=== PATIENT | female | born 1985 | race Caucasian/White ===

== ENCOUNTER 2017-10-22 12:56 | Emergency (ER) | payer SELFPAY ==
[2017-10-22] MEDS ORDERED: NS 0.9% 1000 ML* 1,000 ML IV ONE (16:28)
[2017-10-22 17:03] LABS: Urine Appearance Clear; Urine Blood Negative (Negative); Urine Color Straw; Urine Ketones Negative (Negative); Urine Protein Negative (Negative); Urine Specific Gravity 1.005 (1.010-1.030); Urine Urobilinogen Negative (Negative)
[2017-10-22 17:05] LABS: ABS Basophils 0 10^3/ul (0-0.2); ABS Eosinophils 0.1 10^3/ul (0-0.6); ABS Lymphocytes 1.8 10^3/ul (1.0-4.8); ABS Monocytes 0.6 10^3/ul (0-0.8); ABS Neutrophils 4.7 10^3/ul (1.5-7.7); ABS Nucleated RBC 0 10^3/ul; Eosinophil % 1.5 % (0-6); Hematocrit 33 % (35-47); Hemoglobin 11.2 g/dl (12.0-16.0); Mean Corpuscular HGB Conc 33 g/dl (31-36); Mean Corpuscular Hemoglobin 28 pg (27-31); Mean Corpuscular Volume 84 fL (80-97); Mean Platelet Volume 9 um3 (7.4-10.4); Nucleated Red Blood Cells % 0; Platelet Count 235 10^3/ul (150-450); Red Blood Count 3.96 10^6/ul (4.0-5.4); Red Cell Distribution Width 17 % (10.5-15); White Blood Count 7.2 10^3/ul (3.5-10.8)
[2017-10-22 17:19] LABS: EGFR Non-African American 183.8 (>60)
[2017-10-22 17:30] VITALS: BP 123/68
--- NOTE | 2017-10-22 18:16 | RAD ---
Indication: Pelvic pain. 12 weeks 2 days gestation based on July 28, 2017 LMP. Comparison: No relevant prior exams available on the [facility] for comparison. Technique: Transabdominal obstetrical ultrasound. Report: Marie intrauterine gestation with observed movement and cardiac activity with heart rate measuring 163 bpm period 5.4 cm pole crown-rump length corresponding to 12 weeks 1 day gestation. Normal contour of the gestational sac. Too early to assess for placenta previa. No perigestational hemorrhage evident. Heterogeneous uterus without definitive visualized fibroids. 3.5 cm cervix. 3.1 x 1.4 x 2.5 cm RIGHT ovary with documented vascular flow is unremarkable. 3.0 x 1.6 x 3.6 cm LEFT ovary with documented vascular flow is remarkable for a 2.2 x 1.2 x 1.8 cm complex cyst devoid of intrinsic vascularity most suspicious for a corpus luteum. No extraovarian adnexal region lesions evident. IMPRESSION: Viable-appearing single 10 intrauterine gestation with estimated gestational age based on this exam of 12 weeks 1 day and AUA SELENA of May 05, 2018.
[2017-10-22] MEDS ORDERED: Nitrofurantoin Macrocrystals* 100 MG CAP PO ONE (18:31)
[2017-10-22] MEDS ORDERED: Cephalexin SUSP* 250 MG/5 ML ORAL.SUSP 100 ML BTL PO ONE (19:01)
--- NOTE | 2017-10-22 19:41 | ED ---
Dennys Richard Tecjoon, scribed for Alex Thurman MD on 10/22/17 at 1636 . Abdominal Pain/Female - HPI Summary HPI Summary: This patient is a 31 year old female presenting to [facility] with a chief complaint of RLQ abd pain since about a month ago. The pain is rated 0/10 in severity currently, but patient states the pain comes and goes. Symptoms aggravated by nothing. Symptoms alleviated by nothing. Patient is currently 11 weeks. Patient denies fever chills, nausea, diarrhea, trouble urinating. Patient has /A2. - History of Current Complaint Chief Complaint: EDOBProblems Stated Complaint: 11 WEEKS PREG ABD PAIN Time Seen by Provider: 10/22/17 16:22 ?: Yes - 11 weeks Onset/Duration: Gradual Onset, Lasting Weeks - 4 Timing: Intermittent Episode Lasting Severity Currently: None Pain Intensity: 0 Pain Scale Used: 0-10 Numeric Location: Discrete At: RLQ Aggravating Factor(s): Nothing Alleviating Factor(s): Nothing Associated Signs and Symptoms: Positive: Negative - fever chills, nausea, diarrhea, trouble urinating Allergies/Adverse Reactions: Allergies Allergy/AdvReac Type Severity Reaction Status Date / Time Diphenhydramine Allergy See Comment Verified 07/20/15 10:20 [From Benadryl] PMH/Surg Hx/FS Hx/Imm Hx Previously Healthy: Yes Opthamlomology History: Denies: Hx Legally Blind EENT History: Denies: Hx Deafness - Immunization History Immunizations Up to Date: Yes Infectious Disease History: No Infectious Disease History: Denies: Traveled Outside the [place] in Last 30 Days - Family History Known Family History: Positive: Diabetes, Other - cancer - Social History Occupation: Employed Full-time Alcohol Use: None Hx Substance Use: No Substance Use Type: Reports: None Hx Tobacco Use: Yes Smoking Status (MU): Light Every Day Tobacco Smoker Review of Systems Negative: Fever, Chills Positive: Abdominal Pain. Negative: Diarrhea, Nausea Genitourinary: Negative - urinary problems All Other Systems Reviewed And Are Negative: Yes Physical Exam Triage Information Reviewed: Yes Vital Signs On Initial Exam: Initial Vitals Temp Pulse Resp BP Pulse Ox 99.0 F 98 16 121/88 100 10/22/17 12:57 10/22/17 12:57 10/22/17 12:57 10/22/17 12:57 10/22/17 12:57 Vital Signs Reviewed: Yes Appearance: Positive: Well-Appearing, No Pain Distress Skin: Positive: Warm, Skin Color Reflects Adequate Perfusion Head/Face: Positive: Normal Head/Face Inspection Eyes: Positive: EOMI ENT: Positive: Normal ENT inspection, Pharynx normal Respiratory/Lung Sounds: Positive: Clear to Auscultation, Breath Sounds Present Cardiovascular: Positive: RRR. Negative: Murmur Abdomen Description: Positive: Nontender Musculoskeletal: Positive: Strength/ROM Intact Neurological: Positive: Sensory/Motor Intact, Alert, Oriented to Person Place, Time, CN Intact II-III - Jefferson Coma Scale Best Eye Response: 4 - Spontaneous Best Motor Response: 6 - Obeys Commands Best Verbal Response: 5 - Oriented Coma Scale Total: 14 Diagnostics - Vital Signs Vital Signs Temp Pulse Resp BP Pulse Ox 10/22/17 12:57 99.0 F 98 16 121/88 100 - Laboratory Lab Results: Lab Results 10/22/17 10/22/17 10/22/17 Range/Units 16:30 16:50 16:50 WBC 7.2 (3.5-10.8) 10^3/ul RBC 3.96 L (4.0-5.4) 10^6/ul Hgb 11.2 L (12.0-16.0) g/dl Hct 33 L (35-47) % MCV 84 (80-97) fL MCH 28 (27-31) pg MCHC 33 (31-36) g/dl RDW 17 H (10.5-15) % Plt Count 235 (150-450) 10^3/ul MPV 9 (7.4-10.4) um3 Neut % (Auto) 64.3 (38-83) % Lymph % (Auto) 25.0 (25-47) % [place] % (Auto) 8.8 (1-9) % Eos % (Auto) 1.5 (0-6) % Baso % (Auto) 0.4 (0-2) % Absolute Neuts (auto) 4.7 (1.5-7.7) 10^3/ul Absolute Lymphs (auto) 1.8 (1.0-4.8) 10^3/ul Absolute Monos (auto) 0.6 (0-0.8) 10^3/ul Absolute Eos (auto) 0.1 (0-0.6) 10^3/ul Absolute Basos (auto) 0 (0-0.2) 10^3/ul Absolute Nucleated RBC 0 10^3/ul Nucleated RBC % 0 Sodium 135 (133-145) mmol/L Potassium 3.5 (3.5-5.0) mmol/L Chloride 105 (101-111) mmol/L Carbon Dioxide 24 (22-32) mmol/L Anion Gap 6 (2-11) mmol/L BUN 8 (6-24) mg/dL Creatinine 0.40 L (0.51-0.95) mg/dL Est GFR ( Amer) 236.4 (>60) Est GFR (Non-Af Amer) 183.8 (>60) BUN/Creatinine Ratio 20.0 (8-20) Glucose 88 (70-100) mg/dL Calcium 8.7 (8.6-10.3) mg/dL Total Bilirubin 0.20 (0.2-1.0) mg/dL AST 14 (13-39) U/L ALT 15 (7-52) U/L Alkaline Phosphatase 36 (34-104) U/L Total Protein 6.3 L (6.4-8.9) g/dL Albumin 3.6 (3.2-5.2) g/dL Globulin 2.7 (2-4) g/dL Albumin/Globulin Ratio 1.3 (1-3) Beta HCG, Quant Pending Urine Color Straw Urine Appearance Clear Urine pH 7.0 (5-9) Ur Specific [place] 1.005 L (1.010-1.030) Urine Protein Negative (Negative) Urine Ketones Negative (Negative) Urine Blood Negative (Negative) Urine Nitrate Negative (Negative) Urine Bilirubin Negative (Negative) Urine Urobilinogen Negative (Negative) Ur Leukocyte Esterase 1+ H (Negative) Urine WBC (Auto) 1+(6-10/hpf) H (Absent) Urine RBC (Auto) Trace(0-2/hpf) (Absent) Ur Squamous Epith Cells Present H (Absent) Urine Bacteria 1+ H (Absent) Urine Glucose Negative (Negative) Blood Type Antibody Screen 10/22/17 Range/Units 16:50 WBC (3.5-10.8) 10^3/ul RBC (4.0-5.4) 10^6/ul Hgb (12.0-16.0) g/dl Hct (35-47) % MCV (80-97) fL MCH (27-31) pg MCHC (31-36) g/dl RDW (10.5-15) % Plt Count (150-450) 10^3/ul MPV (7.4-10.4) um3 Neut % (Auto) (38-83) % Lymph % (Auto) (25-47) % [place] % (Auto) (1-9) % Eos % (Auto) (0-6) % Baso % (Auto) (0-2) % Absolute Neuts (auto) (1.5-7.7) 10^3/ul Absolute Lymphs (auto) (1.0-4.8) 10^3/ul Absolute Monos (auto) (0-0.8) 10^3/ul Absolute Eos (auto) (0-0.6) 10^3/ul Absolute Basos (auto) (0-0.2) 10^3/ul Absolute Nucleated RBC 10^3/ul Nucleated RBC % Sodium (133-145) mmol/L Potassium (3.5-5.0) mmol/L Chloride (101-111) mmol/L Carbon Dioxide (22-32) mmol/L Anion Gap (2-11) mmol/L BUN (6-24) mg/dL Creatinine (0.51-0.95) mg/dL Est GFR ( Amer) (>60) Est GFR (Non-Af Amer) (>60) BUN/Creatinine Ratio (8-20) Glucose (70-100) mg/dL Calcium (8.6-10.3) mg/dL Total Bilirubin (0.2-1.0) mg/dL AST (13-39) U/L ALT (7-52) U/L Alkaline Phosphatase (34-104) U/L Total Protein (6.4-8.9) g/dL Albumin (3.2-5.2) g/dL Globulin (2-4) g/dL Albumin/Globulin Ratio (1-3) Beta HCG, Quant Urine Color Urine Appearance Urine pH (5-9) Ur Specific [place] (1.010-1.030) Urine Protein (Negative) Urine Ketones (Negative) Urine Blood (Negative) Urine Nitrate (Negative) Urine Bilirubin (Negative) Urine Urobilinogen (Negative) Ur Leukocyte Esterase (Negative) Urine WBC (Auto) (Absent) Urine RBC (Auto) (Absent) Ur Squamous Epith Cells (Absent) Urine Bacteria (Absent) Urine Glucose (Negative) Blood Type O Positive Antibody Screen Pending Result Diagrams: 10/22/17 16:50 10/22/17 16:50 Lab Statement: Any lab studies that have been ordered have been reviewed, and results considered in the medical decision making process. - Additional Comments Diagnostic Additional Comments: US reveals, per radiologist, IMPRESSION: Viable-appearing single 10 intrauterine gestation with estimated gestational age based on this exam of 12 weeks 1 day and AUA SELENA of May 05, 2018. ED physician has reviewed this radiology report. Abdominal Pain Fem Course/Dx - Course Course Of Treatment: This patient is a 31 year old female presenting to [facility] with a chief complaint of RLQ abd pain since about a month ago. The pain is rated 0/10 in severity currently, but patient states the pain comes and goes. Symptoms aggravated by nothing. Symptoms alleviated by nothing. Patient is currently 11 weeks. Patient denies fever chills, nausea, diarrhea, trouble urinating. Patient has /A2. US reveals, per radiologist, IMPRESSION: Viable-appearing single 10 intrauterine gestation with estimated gestational age based on this exam of 12 weeks 1 day and AUA SELENA of May 05, 2018. ED physician has reviewed this radiology report. Bloodwork Obtained. Urinalysis Obtained. In the ED course the patient was given Microdantin. - Diagnoses Provider Diagnoses: UTI (urinary tract infection) during Discharge - Discharge Plan Condition: Good Disposition: HOME Prescriptions: Cephalexin SUSP* [Keflex SUSP 250 MG/5 ML*] 500 mg PO BID #100 ml Patient Education Materials: Urinary Tract Infection in (ED) Referrals: Esme Lynne MD [Medical Doctor] - No Primary Care Phys,NOPCP [Primary Care Provider] - The documentation as recorded by the Dennys carcamo Tecjoon accurately reflects the service I personally performed and the decisions made by , Alex Thurman MD.
== END 2017-10-22 19:49 | disposition home or self-care (01) ==
LOC: ED 12:56
DX: O23.41 Unspecified infection of urinary tract in pregnancy, first trimester (principal); R10.31 Right lower quadrant pain; R50.9 Fever, unspecified; R11.0 Nausea; R19.7 Diarrhea, unspecified; F17.210 Nicotine dependence, cigarettes, uncomplicated; Z3A.11 11 weeks gestation of pregnancy
CPT/HCPCS: 36415; 76801; 80053; 81003; 81015; 84702; 85025; 86850; 86900; 86901; 87086; 99282; A9270-GY

== ENCOUNTER 2018-04-26 13:07 | Inpatient (IN) | payer BC, MEDICAID ==
[2018-04-26] MEDS ORDERED: Buffered Lidocaine 0.9% SYRIN* 5 ML/SYR SYRINGE ONE (13:50)
[2018-04-26] MEDS ORDERED: EPHEDrine (Pressors)* 50 MG/ML VIAL IV PUSH PRN ×2 (14:20)
[2018-04-26] MEDS ORDERED: Hetastarch 6% in NS* 200 ML IV PRN (14:20)
[2018-04-26] MEDS ORDERED: Phenylephrine IV* 40 MCG/ML 10 ML SYRINGE IV PUSH PRN ×2 (14:20)
[2018-04-26] MEDS ORDERED: Famotidine TAB* 20 MG PO PRN (14:20)
[2018-04-26] MEDS ORDERED: Sodium Citrate/Citric Acid* 15 ML UDC PO PRN (14:20)
[2018-04-26 14:30] LABS: ABS Basophils 0.1 10^3/ul (0-0.2); ABS Eosinophils 0 10^3/ul (0-0.6); ABS Lymphocytes 1.6 10^3/ul (1.0-4.8); ABS Monocytes 0.7 10^3/ul (0-0.8); ABS Neutrophils 10.4 10^3/ul (1.5-7.7); ABS Nucleated RBC 0 10^3/ul; Eosinophil % 0.1 % (0-6); Hematocrit 40 % (35-47); Hemoglobin 13.9 g/dl (12.0-16.0); Lymphocyte % 12.7 % (25-47); Mean Corpuscular HGB Conc 35 g/dl (31-36); Mean Corpuscular Hemoglobin 32 pg (27-31); Mean Corpuscular Volume 92 fL (80-97); Mean Platelet Volume 8.9 um3 (7.4-10.4); Nucleated Red Blood Cells % 0; Platelet Count 203 10^3/ul (150-450); Red Blood Count 4.33 10^6/ul (4.00-5.40); Red Cell Distribution Width 14 % (10.5-15); White Blood Count 12.8 10^3/ul (3.5-10.8)
[2018-04-26] MEDS ORDERED: OBEPIDURAL* 250 ML EPIDURAL ONE (14:31)
[2018-04-26 14:46] LABS: EGFR Non-African American 163.7 (>60); Uric Acid 3.6 mg/dL (2.3-6.6)
[2018-04-26] MEDS ORDERED: OBEPIDURAL* 250 ML EPIDURAL SCH (15:00)
--- NOTE | 2018-04-26 16:33 | HP ---
General Information - General Information Maternal Age: 32 Grav: 2 Para: 0 SAB: 1 IEA: 0 Estimated Due Date: 05/04/18 Determined By: LMP Gestational Age in Weeks and Days: 38 Weeks and 6 Days Maternal Blood Type and Rh: O Positive - Results this Serology/RPR Result: Non-Reactive Rubella Result: Immune HBsAg Result: Negative HIV Result: Negative GBS Culture Result: Negative Past Medical History Delivery History: See Records - G1 Pertinent Past Medical History: Non-Contributory Pertinent Past Surgical History: None Pertinent Family History: Non-Contributory - Antepartal Records Antepartal Records: Reviewed, Complicated by: - smoker Review of Systems Constitutional: Uncomfortable - with ctx CV Complaint: No Respiratory: Shortness of Breath: No Gastrointestinal: No Nausea/Vomiting Genitourinary: Bleeding, No Dysuria, No Leaking Fluid Musculoskeletal: Contractions - Q3-4 min for 2 hours Neurological: No Headache Movement: Normal Exam Allergies/Adverse Reactions: Allergies diphenhydramine Allergy (Verified 04/26/18 13:47) See Comment SEIZURE 150/89, afebrile Lab Values - Entire Visit: Laboratory Tests 04/26/18 04/26/18 04/26/18 14:19 14:19 14:19 WBC 12.8 H RBC 4.33 Hgb 13.9 Hct 40 MCV 92 MCH 32 H MCHC 35 RDW 14 Plt Count 203 MPV 8.9 Neut % (Auto) 81.2 Lymph % (Auto) 12.7 L Miller % (Auto) 5.5 Eos % (Auto) 0.1 Baso % (Auto) 0.5 Absolute Neuts (auto) 10.4 H Absolute Lymphs (auto) 1.6 Absolute Monos (auto) 0.7 Absolute Eos (auto) 0 Absolute Basos (auto) 0.1 Absolute Nucleated RBC 0 Nucleated RBC % 0 Sodium 131 L Potassium TNP Chloride 100 L Carbon Dioxide 20 L Anion Gap 11 BUN 7 Creatinine 0.44 L Est GFR ( Amer) 198.1 Est GFR (Non-Af Amer) 163.7 BUN/Creatinine Ratio 15.9 Glucose 81 Uric Acid 3.6 Calcium 9.0 Total Bilirubin 0.40 AST TNP ALT 12 Alkaline Phosphatase 147 H Total Protein 7.2 Albumin 3.9 Globulin 3.3 Albumin/Globulin Ratio 1.2 Blood Type O Positive Antibody Screen Negative - Measurements Height: 5 ft Weight: 114 lb Weight in lbs: [phone] Body Mass Index (BMI): 22.2 Pre- Weight: 87 lb Weight Gained This : 27 lbs and 0 ozs - Exam Abdomen: No Upper Quadrant Pain Breast: Breast Exam Deferred Heart: Normal Rhythm/Heart Sounds HEENT: No Significant Findings Lungs: Clear Bilaterally Rectal: Rectal Exam Deferred - Abdominal Exam Abdomen Exam: Non-Tender Abdomen Exam Comment: Feels small for dates - Ultrasound/Biophysical Profile Ultrasound Status: Not Done Targeted Exam Findings Estimated Weight: 6.5 lbs Cervical Exam: 4cm Effacement: 100% Station: -1 Presenting Part: Vertex Membrane Status: Intact Bleeding/Discharge: Bloody Show - slight EFM Findings - External Monitor Findings Baseline Heart Rate: 130 External Monitor Findings: Accelerations Present, No Pattern of Variable or Late Decelerations, Variability Moderate Contractions: Strong, 45-90 Seconds Contraction Frequency: Q3-5 min Assessment/Plan - Reason for Visit Reason for Visit: 38+6 wks with regular, strong ctx, cervical change since yesterday. Very reassuring status. - Plan Plan: Active Labor Plan Comment: Pt desires epidural. - Date/Time of Admission Date of Admission: 04/26/18 Time of Admission: 13:30
[2018-04-26] MEDS ORDERED: Oxytocin in LR* 20 UNITS/1,000 ML BAG IVPB ONE (21:14)
[2018-04-26] MEDS ORDERED: Witch Hazel PAD* JAR TOPICAL PRN (21:42)
[2018-04-26] MEDS ORDERED: Acetaminophen TAB* 325 MG PO PRN (21:42)
[2018-04-26] MEDS ORDERED: Oxytocin in LR* 20 UNITS/1,000 ML BAG IVPB SCH (22:00)
--- NOTE | 2018-04-26 22:56 | PROCNOTE ---
[facility] OB: Delivery Note - Delivery A Date of : 04/26/18 Time of : 21:11 Gestational Age in Weeks and Days at Delivery: 38 Weeks and 6 Days Delivery Method: Spontaneous Vaginal Labor: Spontaneous Did Patient attempt ?: N/A, No Previous Amniotic Fluid: Clear Anesthesia/Analgesia: CEI for Labor Delivered By: Nisha Schmidt - Nursery Level of Nursery: Regular/Bedside - Perineum Perineal Injury: 2nd Degree Perineal Repair: By Delivering Practioner - Events Delivery Events of Note: Pitocin During Labor - Additional Delivery Notes Additional Delivery Notes: Pt admitted in active labor, about 4cm/100%. Received an epidural which worked well. AROM with clear fluid. Pt then progressed well to C/C/+2. She pushed for 3 contractions to deliver the head in a controlled fashion. Shoulders and body followed easily. Infant cried quickly, placed on mother's abdomen. Intact placenta delivered spontaneously.
[2018-04-27] MEDS: Dibucaine 1% 28.35 GM TUBE PR PRN (05:03)
[2018-04-27] MEDS: Ibuprofen TAB* 600 MG PO PRN ×4 (05:03→23:35)
[2018-04-27 06:43] LABS: ABS Basophils 0 10^3/ul (0-0.2); ABS Eosinophils 0 10^3/ul (0-0.6); ABS Monocytes 0.9 10^3/ul (0-0.8); ABS Neutrophils 7.6 10^3/ul (1.5-7.7); ABS Nucleated RBC 0 10^3/ul; Eosinophil % 0.4 % (0-6); Hematocrit 33 % (35-47); Hemoglobin 11.7 g/dl (12.0-16.0); Lymphocyte % 18.9 % (25-47); Mean Corpuscular HGB Conc 35 g/dl (31-36); Mean Corpuscular Hemoglobin 32 pg (27-31); Mean Corpuscular Volume 91 fL (80-97); Mean Platelet Volume 8.9 um3 (7.4-10.4); Nucleated Red Blood Cells % 0; Platelet Count 163 10^3/ul (150-450); Red Blood Count 3.64 10^6/ul (4.00-5.40); Red Cell Distribution Width 13 % (10.5-15); White Blood Count 10.5 10^3/ul (3.5-10.8)
[2018-04-27] MEDS: Docusate CAP* 100 MG PO SCH ×3 (08:11→23:35)
[2018-04-27] MEDS ORDERED: Simethicone TAB* 80 MG TAB.CHEW PO SCH (08:30)
[2018-04-27] MEDS ORDERED: Ferrous Gluconate TAB* 324 MG TAB PO SCH (09:00)
[2018-04-28 08:18] VITALS: BP 100/52
[2018-04-28] MEDS: Ibuprofen TAB* 600 MG PO PRN (09:21)
[2018-04-28] MEDS: Docusate CAP* 100 MG PO SCH (09:21)
[2018-04-28] MEDS: Dibucaine 1% 28.35 GM TUBE PR PRN (12:50)
== END 2018-04-28 13:07 | disposition home or self-care (01) | DRG 560 ==
LOC: MCHOBOUT 13:07 → MCHOB 13:34
PROVIDERS: ADMIT Obstetrics & Gynecology; ATTEND Obstetrics & Gynecology
PROC: 10E0XZZ Delivery of Products of Conception, External Approach (ICD-10-PCS; principal; 2018-04-26)
PROC: 10907ZC Drainage of Amniotic Fluid, Therapeutic from Products of Conception, Via Natural or Artificial Opening (ICD-10-PCS; 2018-04-26)
PROC: 0KQM0ZZ Repair Perineum Muscle, Open Approach (ICD-10-PCS; 2018-04-26)
DX: O60.23X0 Term delivery with preterm labor, third trimester, not applicable or unspecified (principal); O70.1 Second degree perineal laceration during delivery; O99.334 Smoking (tobacco) complicating childbirth; F17.210 Nicotine dependence, cigarettes, uncomplicated; Z3A.38 38 weeks gestation of pregnancy; Z37.0 Single live birth
CPT/HCPCS: 36415; 80053; 84550; 85025; 86850; 86900; 86901; A9270-GY

== ENCOUNTER 2019-07-29 14:53 | Emergency (ER) | payer BC, OTHER ==
[2019-07-29 16:05] LABS: Urine Appearance Cloudy; Urine Bacteria 1+ (Absent); Urine Bilirubin Negative (Negative); Urine Blood Negative (Negative); Urine Color Amber; Urine Glucose Negative (Negative); Urine Ketones Trace (Negative); Urine Nitrite Negative (Negative); Urine Protein 2+(100 mg/dL) (Negative); Urine Red Blood Cell 2+(6-10/hpf) (Absent); Urine Specific Gravity 1.025 (1.010-1.030); Urine Squamous Epithelial Cell Present (Absent); Urine Urobilinogen Negative (Negative); Urine White Blood Cell 1+(6-10/hpf) (Absent)
[2019-07-29 16:17] LABS: Urine Benzodiazepine Screen None Detected (None Detect); Urine Opiates Screen None Detected (None Detect)
[2019-07-29 16:19] LABS: ABS Lymphocytes 1.1 10^3/ul (1.0-4.8); ABS Monocytes 0.7 10^3/ul (0-0.8); ABS Neutrophils 6.7 10^3/ul (1.5-7.7); Eosinophil % 0.3 %; Hematocrit 43 % (35-47); Hemoglobin 14.6 g/dL (12.0-16.0); Lymphocyte % 12.6 %; Mean Corpuscular HGB Conc 34 g/dL (31-36); Mean Corpuscular Hemoglobin 32 pg (27-31); Mean Corpuscular Volume 94 fL (80-97); Mean Platelet Volume 8.6 fL (7.4-10.4); Nucleated Red Blood Cells % 0.1; Platelet Count 195 10^3/uL (150-450); Red Blood Count 4.64 10^6 /uL (3.70-4.87); Red Cell Distribution Width 13 % (10-15); White Blood Count 8.5 10^3/uL (3.5-10.8)
[2019-07-29 16:34] LABS: ALT 27 U/L (7-52); AST 24 U/L (13-39); Acetaminophen < 15 mcg/mL; Albumin 4.3 g/dL (3.2-5.2); Albumin/Globulin Ratio 1.7 (1-3); Alcohol < 10 mg/dL (<10); Alkaline Phosphatase 50 U/L (34-104); Anion Gap 4 mmol/L (2-11); BUN/Creatinine Ratio 13.7 (8-20); Blood Urea Nitrogen 7 mg/dL (6-24); CO2 Carbon Dioxide 28 mmol/L (22-32); Calcium 8.7 mg/dL (8.6-10.3); Chloride 103 mmol/L (101-111); EGFR African American 166.1 (>60); EGFR Non-African American 137.2 (>60); Globulin 2.5 g/dL (2-4); Glucose 110 mg/dL (70-100); Potassium 4.1 mmol/L (3.5-5.0); Salicylate < 2.50 mg/dL (<30); Sodium 135 mmol/L (135-145); Total Protein 6.8 g/dL (6.4-8.9)
[2019-07-29 17:23] VITALS: BP 140/79
--- NOTE | 2019-07-30 11:08 | ED ---
Substance Abuse/Use - HPI Summary HPI Summary: This patient is a 33-year-old otherwise healthy female presenting to the ED with a possible overdose. Patient states she snorted some something of an unknown substance and immediately following, family at bedside states she needed to be resuscitated with chest compressions. After about 5 seconds, patient became alert and oriented, breathing well and denied any complaints. Patient denies any suicidal or homicidal ideation. She states she does have history of depression, but currently is not on any medication. She has taken heroin in the past, but denies this was heroin or cocaine. She continues to state she is "unsure" what medication this was and continues to deny any SI/HI. Patient is tearful on arrival, continuing to state she "did something stupid. " No history of overdose or suicidal attempts in the past. Patient takes no medications. Denies any counseling. - History Of Current Complaint Chief Complaint: EDOverdose Stated Complaint: 941 MENTAL HEALTH Time Seen by Provider: 07/29/19 15:09 Hx Obtained From: Patient ?: No Ingestion History: Type/Name Of Drug - unknown Overdose Characteristics: Other - snort Timing Of Abuse: Binge Use Severity Initially: Severe Severity Currently: None Aggravating Factor(s): Nothing Alleviating Factor(s): Nothing Associated Signs And Symptoms: Negative - Risk Factor(s) Completed Suicide Risk Factors: Negative - Allergies/Home Medications Allergies/Adverse Reactions: Allergies Allergy/AdvReac Type Severity Reaction Status Date / Time diphenhydramine Allergy See Comment Verified 04/26/18 13:47 Home Medications: Home Medications NK [No Home Medications Reported] 07/29/19 [History Confirmed 07/29/19] PMH/Surg Hx/FS Hx/Imm Hx Previously Healthy: Yes Sensory History: Denies: Hx Legally Blind, Hx Deafness Opthamlomology History: Denies: Hx Legally Blind - Immunization History Hx Pertussis Vaccination: No Immunizations Up to Date: Yes Infectious Disease History: No Infectious Disease History: Denies: Traveled Outside the [place] in Last 30 Days - Family History Known Family History: Positive: Diabetes, Other - cancer - Social History Occupation: Unemployed Lives: With Family Alcohol Use: None Hx Substance Use: No Substance Use Type: Reports: None Hx Tobacco Use: Yes Smoking Status (MU): Light Every Day Tobacco Smoker Type: Cigarettes Amount Used/How Often: 1/2 PPD Length of Time of Smoking/Using Tobacco: 15 years Have You Smoked in the Last Year: Yes Review of Systems Negative: Fever, Chills, Fatigue, Skin Diaphoresis Negative: Palpitations, Chest Pain Negative: Shortness Of Breath, Cough Negative: Abdominal Pain, Vomiting, Diarrhea, Nausea Genitourinary: Negative Positive: no symptoms reported, see HPI Negative: Arthralgia, Myalgia Skin: Negative Negative: Headache, Weakness, Paresthesia, Numbness Positive: Depressed All Other Systems Reviewed And Are Negative: Yes Physical Exam Triage Information Reviewed: Yes Vital Signs On Initial Exam: Initial Vitals Pulse Resp BP Pulse Ox 108 27 146/76 93 07/29/19 15:14 07/29/19 15:14 07/29/19 15:14 07/29/19 15:14 Vital Signs Reviewed: Yes Appearance: Positive: Well-Appearing, Well-Nourished Skin: Positive: Warm, Skin Color Reflects Adequate Perfusion Eyes: Positive: EOMI, MARIBEL, Conjunctiva Clear Neck: Positive: Supple, No Lymphadenopathy Respiratory/Lung Sounds: Positive: Clear to Auscultation, Breath Sounds Present Cardiovascular: Positive: RRR, Pulses are Symmetrical in both Upper and Lower Extremities Musculoskeletal: Positive: Normal, Strength/ROM Intact Neurological: Positive: Speech Normal Psychiatric: Positive: Normal, Affect/Mood Appropriate AVPU Assessment: Alert Procedures - Sedation Patient Received Moderate/Deep Sedation with Procedure: No Diagnostics - Vital Signs Vital Signs Temp Pulse Resp BP Pulse Ox 07/29/19 17:24 97.2 F 88 16 140/79 98 07/29/19 17:14 16 140/79 07/29/19 17:00 89 19 98 07/29/19 16:13 138/89 07/29/19 16:00 108 24 100 07/29/19 15:44 77 7 121/73 97 07/29/19 15:21 97.5 F 87 16 146/76 98 07/29/19 15:17 116 19 98 07/29/19 15:14 108 27 146/76 93 - Laboratory Lab Results: Lab Results 07/29/19 07/29/19 07/29/19 Range/Units 15:21 15:21 16:01 WBC 8.5 (3.5-10.8) 10^3/uL RBC 4.64 (3.70-4.87) 10^6 /uL Hgb 14.6 (12.0-16.0) g/dL Hct 43 (35-47) % MCV 94 (80-97) fL MCH 32 H (27-31) pg MCHC 34 (31-36) g/dL RDW 13 (10-15) % Plt Count 195 (150-450) 10^3/uL MPV 8.6 (7.4-10.4) fL Neut % (Auto) 78.9 % Lymph % (Auto) 12.6 % [place] % (Auto) 8.1 % Eos % (Auto) 0.3 % Baso % (Auto) 0.1 % Absolute Neuts (auto) 6.7 (1.5-7.7) 10^3/ul Absolute Lymphs (auto) 1.1 (1.0-4.8) 10^3/ul Absolute Monos (auto) 0.7 (0-0.8) 10^3/ul Absolute Eos (auto) 0.0 (0-0.6) 10^3/ul Absolute Basos (auto) 0.0 (0-0.2) 10^3/ul Absolute Nucleated RBC 0.0 10^3/ul Nucleated RBC % 0.1 Sodium (135-145) mmol/L Potassium (3.5-5.0) mmol/L Chloride (101-111) mmol/L Carbon Dioxide (22-32) mmol/L Anion Gap (2-11) mmol/L BUN (6-24) mg/dL Creatinine (0.51-0.95) mg/dL Est GFR ( Amer) (>60) Est GFR (Non-Af Amer) (>60) BUN/Creatinine Ratio (8-20) Glucose (70-100) mg/dL Lactic Acid (0.5-2.0) mmol/L Calcium (8.6-10.3) mg/dL Total Bilirubin (0.2-1.0) mg/dL AST (13-39) U/L ALT (7-52) U/L Alkaline Phosphatase (34-104) U/L Total Protein (6.4-8.9) g/dL Albumin (3.2-5.2) g/dL Globulin (2-4) g/dL Albumin/Globulin Ratio (1-3) Urine Color Teena Urine Appearance Cloudy Urine pH 5.0 (5-9) Ur Specific [place] 1.025 (1.010-1.030) Urine Protein 2+(100 mg/dl) A (Negative) Urine Ketones Trace A (Negative) Urine Blood Negative (Negative) Urine Nitrate Negative (Negative) Urine Bilirubin Negative (Negative) Urine Urobilinogen Negative (Negative) Ur Leukocyte Esterase Negative (Negative) Urine WBC (Auto) 1+(6-10/hpf) A (Absent) Urine RBC (Auto) 2+(6-10/hpf) A (Absent) Ur Squamous Epith Cells Present A (Absent) Calcium Oxalate Crystal Present A (Absent) Urine Bacteria 1+ A (Absent) Hyaline Casts Present A (Absent) Urine Glucose Negative (Negative) Salicylates (<30) mg/dL Urine Opiates Screen None detected (None Detect) Acetaminophen mcg/mL Ur Barbiturates Screen None detected (None Detect) Ur Phencyclidine Scrn None detected (None Detect) Ur Amphetamines Screen None detected (None Detect) U Benzodiazepines Scrn None detected (None Detect) Urine Cocaine Screen None detected (None Detect) U Cannabinoids Screen Presumptive positive A (None Detect) Serum Alcohol (<10) mg/dL 07/29/19 07/29/19 Range/Units 16:01 16:01 WBC (3.5-10.8) 10^3/uL RBC (3.70-4.87) 10^6 /uL Hgb (12.0-16.0) g/dL Hct (35-47) % MCV (80-97) fL MCH (27-31) pg MCHC (31-36) g/dL RDW (10-15) % Plt Count (150-450) 10^3/uL MPV (7.4-10.4) fL Neut % (Auto) % Lymph % (Auto) % [place] % (Auto) % Eos % (Auto) % Baso % (Auto) % Absolute Neuts (auto) (1.5-7.7) 10^3/ul Absolute Lymphs (auto) (1.0-4.8) 10^3/ul Absolute Monos (auto) (0-0.8) 10^3/ul Absolute Eos (auto) (0-0.6) 10^3/ul Absolute Basos (auto) (0-0.2) 10^3/ul Absolute Nucleated RBC 10^3/ul Nucleated RBC % Sodium 135 (135-145) mmol/L Potassium 4.1 (3.5-5.0) mmol/L Chloride 103 (101-111) mmol/L Carbon Dioxide 28 (22-32) mmol/L Anion Gap 4 (2-11) mmol/L BUN 7 (6-24) mg/dL Creatinine 0.51 (0.51-0.95) mg/dL Est GFR ( Amer) 166.1 (>60) Est GFR (Non-Af Amer) 137.2 (>60) BUN/Creatinine Ratio 13.7 (8-20) Glucose 110 H (70-100) mg/dL Lactic Acid 0.5 (0.5-2.0) mmol/L Calcium 8.7 (8.6-10.3) mg/dL Total Bilirubin 0.20 (0.2-1.0) mg/dL AST 24 (13-39) U/L ALT 27 (7-52) U/L Alkaline Phosphatase 50 (34-104) U/L Total Protein 6.8 (6.4-8.9) g/dL Albumin 4.3 (3.2-5.2) g/dL Globulin 2.5 (2-4) g/dL Albumin/Globulin Ratio 1.7 (1-3) Urine Color Urine Appearance Urine pH (5-9) Ur Specific [place] (1.010-1.030) Urine Protein (Negative) Urine Ketones (Negative) Urine Blood (Negative) Urine Nitrate (Negative) Urine Bilirubin (Negative) Urine Urobilinogen (Negative) Ur Leukocyte Esterase (Negative) Urine WBC (Auto) (Absent) Urine RBC (Auto) (Absent) Ur Squamous Epith Cells (Absent) Calcium Oxalate Crystal (Absent) Urine Bacteria (Absent) Hyaline Casts (Absent) Urine Glucose (Negative) Salicylates < 2.50 (<30) mg/dL Urine Opiates Screen (None Detect) Acetaminophen < 15 mcg/mL Ur Barbiturates Screen (None Detect) Ur Phencyclidine Scrn (None Detect) Ur Amphetamines Screen (None Detect) U Benzodiazepines Scrn (None Detect) Urine Cocaine Screen (None Detect) U Cannabinoids Screen (None Detect) Serum Alcohol < 10 (<10) mg/dL Result Diagrams: 07/29/19 16:01 07/29/19 16:01 Lab Statement: Any lab studies that have been ordered have been reviewed, and results considered in the medical decision making process. Course/Dx - Course Course Of Treatment: During the course of treatment, the patient is evaluated for possible overdose. Patient denies attempting to overdose. She does endorse snorting a substance which is unknown to her. She states it could've been cocaine, but did not feel similar to cocaine or heroine. She states she had no side effects of this, however family at bedside state she appeared to stop breathing and needed to have chest compressions. She states this lasted only approximately 5 seconds and immediately became responsive, alert and oriented and denied any chest pressure or pain. She denied any difficulty with breathing. Labs are obtained which are unremarkable. EKG obtained which is a normal sinus rhythm without abnormalities. Drug screen obtained which shows cannabinoids without evidence of any other illicit drugs. Placed a social work consult. Social work is gone for the day. Discussed results with patient. Family is at bedside. She states she feels comfortable going home, continues to deny any SI/HI. She states she will follow-up with social work and use resources for in the community to get a counselor to work through her depression. - Diagnoses Provider Diagnoses: Overdose Discharge ED - Sign-Out/Discharge Documenting (check all that apply): Patient Departure - Discharge Plan Condition: Stable Disposition: HOME Referrals: No Primary Care Phys,NOPCP [Primary Care Provider] - Additional Instructions: Please follow up with counselor. I have placed a social work consult for you They will call you regarding community resources - Billing Disposition and Condition Condition: STABLE Disposition: Home
--- NOTE | 2019-08-02 11:18 | ED ---
Imaging and Labs Follow Up Follow Up Type: Labs/Cultures Labs/Culture Result: [id number] vannesa Patient Communication/Plan: Attempted to reach pt. at both numbers listed in chart with no answer or answering machine. Rx for flagyl sent to pharmacy. Will send letter. Provider Diagnoses: Overdose
== END 2019-07-29 17:24 | disposition home or self-care (01) ==
LOC: ED 14:53
DX: T50.901A Poisoning by unspecified drugs, medicaments and biological substances, accidental (unintentional), initial encounter (principal); Y92.9 Unspecified place or not applicable; F32.9 Major depressive disorder, single episode, unspecified; F17.210 Nicotine dependence, cigarettes, uncomplicated
CPT/HCPCS: 36415; 80053; 80307; 80320; 80329; 81003; 81015; 83605; 85025; 87077; 87086; 93005; 99282; G0480